=== PATIENT | female | born 1940 | race Caucasian/White ===

== ENCOUNTER 2019-07-06 05:25 | Day surgery (SDC) | payer OTHER ==
[~2019-07-06 05:25] MED LIST: ZOCOR20 MG PO
[2019-07-06] MEDS ORDERED: ULTRACET PO (14:33)
[2019-07-06] MEDS ORDERED: MACROBID 100 M100 MG PO (14:33)
== END 2019-07-06 17:50 | disposition home or self-care (01) ==
LOC: CIR.AMB 05:25
DX: N81.11 Cystocele, midline (principal)